=== PATIENT | female | born 1975 | race Caucasian/White ===

== ENCOUNTER 2021-08-16 15:31 | Emergency (ER) | payer OTHER ==
[2021-08-16 16:30] LABS: INFLUENZA A NAA NEGATIVE (NEGATIVE)
[2021-08-16 16:35] LABS: CORONAVIRUS 2019 SARS-COV-2 POSITIVE (NEGATIVE)
[2021-08-16] MEDS ORDERED: MEDROL 4MG DOSEP4 MG PO (16:42)
[2021-08-16] MEDS ORDERED: VENTOLIN HFA IN18 GM INH (16:42)
== END 2021-08-16 16:47 | disposition home or self-care (01) ==
LOC: FER 15:31
PROVIDERS: Nurse Practitioner Family
DX: U07.1 COVID-19 (principal); I10 Essential (primary) hypertension; Z88.6 Allergy status to analgesic agent
CPT/HCPCS: 99283; U0002